=== PATIENT | female | born 1975 | race African-American/Black ===

== ENCOUNTER 2016-11-18 14:08 | Emergency (ER) | payer OTHER ==
[~2016-11-18] VITALS: Ht 160 cm; Wt 52.3 kg
[2016-11-18 17:39] LABS: GLUCOSE, URINE (UA) NEGATIVE (NEGATIVE); KETONES,URINE NEGATIVE (NEGATIVE); LEUKOCYTE ESTERASE ,URINE NEGATIVE (NEGATIVE); OCCULT BLOOD,URINE NEGATIVE (NEGATIVE); PROTEIN,URINE NEGATIVE (NEGATIVE)
[2016-11-18 17:45] LABS: ADD UA MICROSCOPIC NO; APPEARANCE,URINE CLEAR (CLEAR)
[2016-11-18] MEDS ORDERED: ACETAMINOPHEN 500 MG TABLET PO ONE (18:45)
[2016-11-18 19:07] VITALS: BP 113/71
== END 2016-11-18 19:10 | disposition home or self-care (01) ==
LOC: EMS 14:12
DX: M54.5 Low back pain (principal)
CPT/HCPCS: 72100; 99285